=== PATIENT | female | born 1950 | race Two or more races ===

== ENCOUNTER 2022-06-07 11:33 | Inpatient (IN) | payer OTHER ==
[~2022-06-07] VITALS: Ht 162.6 cm; Wt 74.5 kg
[2022-06-07] MEDS ORDERED: AZITHROMYCIN 500MG/ 250ML 250 ML IV ONE (14:30)
[2022-06-07] MEDS ORDERED: SODIUM CHLORIDE 0.9% 1,000 ML IV ONE ×3 (14:30→19:15)
[2022-06-07] MEDS ORDERED: cefTRIAXone 1GM/50ML D5W 50 ML IV ONE (14:30)
[2022-06-07 15:38] LABS: Basophils # (auto) 0 10 ^3/uL (0-0.2); Basophils % (auto) 0.1 % (0.0-2.0); Eosinophils # (auto) 0 10 ^3/uL (0-0.8); Eosinophils % (auto) 0.1 % (0.0-7.0); Hematocrit 31.5 % (36.0-46.0); Hemoglobin 10.4 g/dL (12.2-16.2); Lymphocytes % (auto) 18.6 % (10.0-50.0); Mean Corpuscular Hemoglobin 31.4 pg (28.0-32.0); Mean Corpuscular Hgb Conc. 33.1 g/dL (32.0-36.0); Mean Corpuscular Volume 94.9 fL (80.0-100.0); Monocytes # (auto) 0.7 10 ^3/uL (0-1.3); Monocytes % (auto) 12.6 % (0.0-12.0); Neutrophils # (auto) 3.8 10 ^3/uL (1.6-8.6); Neutrophils % (auto) 68.6 % (37.0-80.0); Red Blood Cells 3.32 10^6/uL (4.0-5.20); Red Cell Distribution Width 16.8 % (11.8-14.3); White Blood Cell 5.5 10^3/uL (4.4-10.8)
[2022-06-07] MEDS ORDERED: SODIUM CHLORIDE 0.9% 500 ML IV ONE (15:45)
[2022-06-07 15:49] LABS: BUN/Creatinine Ratio 14.7; Calcium 8.2 mg/dL (8.5-10.1); Potassium 4.2 mmol/L (3.5-5.1)
[2022-06-07 15:52] LABS: Bilirubin, Total 0.9 mg/dL (0.2-1.0); Total Protein 7.6 g/dL (6.4-8.2)
[2022-06-07] MEDS ORDERED: VANCOMYCIN PER PHARMACY 0 MG IV SCH (16:15)
[2022-06-07] MEDS ORDERED: ALBUTEROL SULF 2.5 MG/0.5ML(0.5%) NEB SOLN NEB PRN (16:15)
[2022-06-07] MEDS ORDERED: IPRATROPIUM BROM 0.5 MG/2.5ML INH SOL NEB PRN (16:15)
[2022-06-07] MEDS ORDERED: VANCOMYCIN 1GM/250ML 250 ML IV ONE (16:45)
[2022-06-07] MEDS ORDERED: DEXTROSE (50%) 50ML SYRG IV PRN (19:15)
[2022-06-07] MEDS: ASPirin 325 MG TAB PO ONE ×2 (21:15→21:53)
[2022-06-07] MEDS ORDERED: CEFEPIME 2 GM in SODIUM CHL 0.9% 50 ML IV SCH (22:00)
[2022-06-07 23:40] VITALS: BP 159/59
[2022-06-07] MEDS: CEFEPIME 2 GM in SODIUM CHL 0.9% 50 ML IV SCH (23:52)
[2022-06-07] MEDS: ACCU-CHEK COMFORT CURVE STRIP VI SCH (23:52)
[2022-06-07] MEDS: InsuLIN REG 1unit/0.01ml Soln (100units/ml) SC SCH (23:52)
[2022-06-08] VITALS (7 sets, daily range): BP systolic 129–167; BP diastolic 50–83
[2022-06-08 05:12] LABS: Urine Bacteria FEW /hpf (None Seen); Urine Blood 2+ /uL (Negative); Urine Mucus FEW (None Seen); Urine Specific Gravity 1.004 (1.001-1.035); Urine WBC 3 /hpf (0 - 5)
[2022-06-08 05:16] LABS: Creatinine, Urine 24 mg/dL (30.0-125.0); Sodium Urine 44 mmol/L (40-220)
[2022-06-08 05:32] LABS: Basophils # (auto) 0 10 ^3/uL (0-0.2); Basophils % (auto) 0.3 % (0.0-2.0); Eosinophils # (auto) 0 10 ^3/uL (0-0.8); Eosinophils % (auto) 0.2 % (0.0-7.0); Hematocrit 26.9 % (36.0-46.0); Hemoglobin 8.9 g/dL (12.2-16.2); Mean Corpuscular Hgb Conc. 33.2 g/dL (32.0-36.0); Mean Corpuscular Volume 93.4 fL (80.0-100.0); Monocytes # (auto) 0.8 10 ^3/uL (0-1.3); Neutrophils # (auto) 4.1 10 ^3/uL (1.6-8.6); Neutrophils % (auto) 69.5 % (37.0-80.0); Red Blood Cells 2.88 10^6/uL (4.0-5.20); Red Cell Distribution Width 16.6 % (11.8-14.3); White Blood Cell 5.9 10^3/uL (4.4-10.8)
[2022-06-08 06:27] LABS: BUN/Creatinine Ratio 12.9; Potassium 3.8 mmol/L (3.5-5.1)
[2022-06-08 06:28] LABS: Calcium 7.6 mg/dL (8.5-10.1)
[2022-06-08] MEDS: InsuLIN REG 1unit/0.01ml Soln (100units/ml) SC SCH ×4 (06:42→21:51)
[2022-06-08] MEDS: ACCU-CHEK COMFORT CURVE STRIP VI SCH ×4 (06:42→21:50)
[2022-06-08] MEDS: ASPirin 81 mg TAB PO SCH (10:00)
[2022-06-08] MEDS ORDERED: ENOXAPARIN SOD 40 MG/0.4 ML SYRINGE SC SCH (10:00)
[2022-06-08] MEDS: PANTOPRAZOLE 40 MG/10 ML VIAL INJ IV SCH (10:00)
[2022-06-08] MEDS: CEFEPIME 2 GM in SODIUM CHL 0.9% 50 ML IV SCH ×2 (11:12→21:49)
[2022-06-08] MEDS ORDERED: DIGOXIN 0.125 MG TAB PO ONE (12:15)
[2022-06-08] MEDS: VANCOMYCIN 1GM/250ML 250 ML IV SCH (13:01)
[2022-06-08 14:01] LABS: INR 1.3 (0.9-1.15)
[2022-06-08 14:12] LABS: Magnesium 1.4 mg/dL (1.6-2.6)
[2022-06-08] MEDS: ACETAMINOPHEN 325 MG TAB PO PRN (21:07)
[2022-06-08] MEDS: ATORVASTATIN 20 MG TAB PO SCH (21:49)
[2022-06-08] MEDS: DABIGATRAN 75 MG CAP PO SCH (21:50)
[2022-06-08] MEDS ORDERED: CARVEDILOL 12.5 MG TAB PO SCH (22:00)
[2022-06-08] MEDS ORDERED: METOPROLOL TARTRATE 25 MG TAB PO SCH (22:00)
[2022-06-08] MEDS ORDERED: DABIGATRAN 75 MG CAP PO SCH (22:00)
[2022-06-09 05:00] VITALS: BP 161/65
[2022-06-09] MEDS: ACETAMINOPHEN 325 MG TAB PO PRN (05:03)
[2022-06-09] MEDS: VANCOMYCIN 1GM/250ML 250 ML IV SCH (05:55)
[2022-06-09] MEDS: ACCU-CHEK COMFORT CURVE STRIP VI SCH ×4 (06:31→22:37)
[2022-06-09] MEDS: InsuLIN REG 1unit/0.01ml Soln (100units/ml) SC SCH ×4 (06:31→22:38)
[2022-06-09 06:39] LABS: BUN/Creatinine Ratio 12.3; Calcium 8.2 mg/dL (8.5-10.1); Potassium 3.7 mmol/L (3.5-5.1)
[2022-06-09 09:00] VITALS: BP 125/62
[2022-06-09] MEDS: LISINOPRIL 10 MG TAB PO SCH (09:54)
[2022-06-09] MEDS: METOPROLOL SUCCINATE XL 50 MG TAB PO SCH (09:55)
[2022-06-09] MEDS: DABIGATRAN 75 MG CAP PO SCH ×2 (09:56→22:37)
[2022-06-09] MEDS: ASPirin 81 mg TAB PO SCH (09:57)
[2022-06-09] MEDS ORDERED: DIGOXIN 0.125 MG TAB PO SCH (10:00)
[2022-06-09] MEDS: CEFEPIME 2 GM in SODIUM CHL 0.9% 50 ML IV SCH ×2 (11:30→22:37)
[2022-06-09] MEDS: PANTOPRAZOLE 40 MG/10 ML VIAL INJ IV SCH (11:30)
[2022-06-09 13:00] VITALS: BP 176/67
[2022-06-09] MEDS ORDERED: ALUM & MAG HYDROX-SIMETH LIQ(MAALOX) 30 ML PO ONE (14:30)
[2022-06-09 17:00] VITALS: BP 170/50
[2022-06-09] MEDS: metFORMIN HYDROCHLORIDE 850 MG TAB PO SCH (18:00)
[2022-06-09 20:00] VITALS: BP 140/90
[2022-06-09 22:00] VITALS: BP 140/90
[2022-06-09] MEDS: ATORVASTATIN 20 MG TAB PO SCH (22:37)
[2022-06-10] VITALS (8 sets, daily range): BP systolic 112–188; BP diastolic 51–85
[2022-06-10] MEDS: VANCOMYCIN 1GM/250ML 250 ML IV SCH ×2 (00:04→17:29)
[2022-06-10] MEDS: ACCU-CHEK COMFORT CURVE STRIP VI SCH ×4 (06:28→21:57)
[2022-06-10] MEDS: InsuLIN REG 1unit/0.01ml Soln (100units/ml) SC SCH ×4 (06:28→21:57)
[2022-06-10] MEDS: PANTOPRAZOLE 40 MG/10 ML VIAL INJ IV SCH (08:53)
[2022-06-10] MEDS: METOPROLOL SUCCINATE XL 50 MG TAB PO SCH (08:54)
[2022-06-10] MEDS: LISINOPRIL 10 MG TAB PO SCH (08:54)
[2022-06-10] MEDS: metFORMIN HYDROCHLORIDE 850 MG TAB PO SCH ×2 (08:55→17:29)
[2022-06-10] MEDS: PIOGLITAZONE HYDROCHLORIDE 30 MG TAB PO SCH (08:56)
[2022-06-10] MEDS: DABIGATRAN 75 MG CAP PO SCH ×2 (08:56→21:56)
[2022-06-10] MEDS: ASPirin 81 mg TAB PO SCH (08:57)
[2022-06-10] MEDS: CEFEPIME 2 GM in SODIUM CHL 0.9% 50 ML IV SCH ×2 (09:07→21:56)
[2022-06-10] MEDS ORDERED: VANCOMYCIN 1GM/250ML 250 ML IV SCH (19:00)
[2022-06-10] MEDS: ATORVASTATIN 20 MG TAB PO SCH (21:56)
[2022-06-11 04:50] VITALS: BP 165/69
[2022-06-11] MEDS: ACCU-CHEK COMFORT CURVE STRIP VI SCH ×3 (06:42→17:00)
[2022-06-11] MEDS: InsuLIN REG 1unit/0.01ml Soln (100units/ml) SC SCH ×3 (06:42→17:00)
[2022-06-11] MEDS ORDERED: VANCOMYCIN 1GM/250ML 250 ML IV SCH ×2 (08:00)
[2022-06-11 09:00] VITALS: BP 135/63
[2022-06-11] MEDS: CEFEPIME 2 GM in SODIUM CHL 0.9% 50 ML IV SCH (10:00)
[2022-06-11] MEDS: PANTOPRAZOLE 40 MG/10 ML VIAL INJ IV SCH (10:00)
[2022-06-11] MEDS: metFORMIN HYDROCHLORIDE 850 MG TAB PO SCH ×2 (11:13→18:00)
[2022-06-11] MEDS: METOPROLOL SUCCINATE XL 50 MG TAB PO SCH (11:14)
[2022-06-11] MEDS: LISINOPRIL 10 MG TAB PO SCH (11:15)
[2022-06-11] MEDS: ASPirin 81 mg TAB PO SCH (11:16)
[2022-06-11] MEDS: DABIGATRAN 75 MG CAP PO SCH (11:16)
[2022-06-11] MEDS ORDERED: AZIT500T66 PO (11:48)
[2022-06-11 13:00] VITALS: BP 139/60
[2022-06-11] MEDS: PIOGLITAZONE HYDROCHLORIDE 30 MG TAB PO SCH (13:05)
[2022-06-11 16:47] VITALS: BP 143/48
== END 2022-06-11 18:50 | disposition home or self-care (01) | DRG 193 ==
LOC: ER 11:33 → WEST WING 16:06 → TELE-WESTW 23:41
PROVIDERS: ADMIT Nurse Practitioner Family; ATTEND Family Medicine
DX: J18.9 Pneumonia, unspecified organism (principal); J96.01 Acute respiratory failure with hypoxia; D62 Acute posthemorrhagic anemia; J90 Pleural effusion, not elsewhere classified; E44.1 Mild protein-calorie malnutrition; N17.9 Acute kidney failure, unspecified; J98.11 Atelectasis; I48.20 Chronic atrial fibrillation, unspecified; R91.1 Solitary pulmonary nodule; Z20.822 Contact with and (suspected) exposure to COVID-19; I10 Essential (primary) hypertension; D63.8 Anemia in other chronic diseases classified elsewhere; E11.9 Type 2 diabetes mellitus without complications; E66.9 Obesity, unspecified; Z68.30 Body mass index [BMI] 30.0-30.9, adult; Z79.01 Long term (current) use of anticoagulants; Z82.49 Family history of ischemic heart disease and other diseases of the circulatory system; Z83.3 Family history of diabetes mellitus; Z85.3 Personal history of malignant neoplasm of breast; Z88.0 Allergy status to penicillin; Z90.11 Acquired absence of right breast and nipple
CPT/HCPCS: 36415; 71046; 71250; 80048; 80053; 80061; 80162; 80202; 81001; 82565; 82570; 82962; 83036; 83605; 83735; 83880; 84300; 84443; 85025; 85610; 87040; 87070; 87205; 87426; 87804; 93306; 96361; 96365; 96367; C9113; G0378; J0696